=== PATIENT | male | born 1990 | race Caucasian/White ===

== ENCOUNTER 2018-04-28 22:51 | Emergency (ER) | payer OTHER ==
[~2018-04-28] VITALS: Ht 165.1 cm; Wt 97.9 kg
[2018-04-29] MEDS ORDERED: NORCO 5/3251 TABLET PO (00:45)
[2018-04-29 00:53] VITALS: BP 132/67
== END 2018-04-29 00:54 | disposition home or self-care (01) ==
LOC: EME 22:51
DX: S63.502A Unspecified sprain of left wrist, initial encounter (principal); X58.XXXA Exposure to other specified factors, initial encounter; Y93.I9 Activity, other involving external motion; F17.200 Nicotine dependence, unspecified, uncomplicated
CPT/HCPCS: 73110; 99281; 99283